=== PATIENT | female | born 1990 | race Asian ===

== ENCOUNTER 2017-03-15 19:18 | Emergency (ER) | payer OTHER ==
[~2017-03-15] VITALS: Ht 157.5 cm; Wt 56.0 kg
[2017-03-15 19:25] VITALS: Ht 157.5 cm; Wt 56.0 kg
--- NOTE | 2017-03-15 19:59 | EMERGENCY ROOM VISIT NOTE ---
History Report prepared by Wilber: Gail Izquierdo Under the Supervision of: Dr. Cornelio Simmons M.D. First contact with patient: 19:44 Chief Complaint: DIZZY Stated Complaint: LIGHTHEADED, FEELS LIKE SHE'S GOING TO PASS OUT Nursing Triage Summary: Pt reports syncopal episode around 191. "I made a statement to my boyfriend and then I couldn't remember saying it. It felt like when I used to smoke pot. I felt my hands tingle and weak. My family has a hx of Diabetes". no injury, easd to floor, drank a soda and felt a little better, but then had another syncopal episode. pt reports weakness, "not myself", abd pain. 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 She states that it feels like she is going to pass out. Her hands and feet are intermittently numb. She does not feel like she is hyperventilating at all. She also reports lower back pain, nausea, and generalized shaking. The patient rates her current pain as a 2 /10 in severity. She states that before her symptoms started today she was feeling fine. She just felt more tired than usual but attributed this to being hungover from drinking alcohol. She reports that she was drinking heavily 2 nights ago and was hungover yesterday. The patient denies urinary symptoms. She notes that about a week ago she had a stomach illness and has been having diarrhea since that time. 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 She is having regular periods and is not on any kind of control. Source of History: patient Onset: 1 hour EDUCATION PROGRAM MANAGER Position: other (global) Symptom Intensity: 2/10 Quality: other (dizziness) Timing: constant Associated Symptoms: + back pain, + diarrhea, + nausea, + numbness, No urinary symptoms Note: Pt notes generalized shaking. Review of Systems All systems have been listed, reviewed, and are negative other than those previously mentioned. Please see Additional Medical History Sheet. Past Medical & Surgical Medical Problems: (1) Bronchitis (2) No significant active problems (3) Pneumonia Surgical Problems: (1) H/O wisdom tooth extraction Family History Cancer Diabetes mellitus Heart disease Hypertension Seizures Social History Smoking Status: Current Every Day Smoker Alcohol Use: occasionally Marital Status: in relationship Housing Status: lives with significant other Occupation Status: employed Current/Historical Medications Scheduled Fexofenadine-Pseudoephedrine (Lydia-D 24 Hour Allergy), 1 TAB PO QPM Scheduled PRN Ibuprofen (Motrin), 400 MG PO Q6H PRN for Pain Allergies Coded Allergies: No Known Allergies (Unverified , 03/15/17) Physical Exam Vital Signs Date Time Temp Pulse Resp B/P Pulse Ox O2 Delivery O2 Flow Rate FiO2 03/15/17 22:25 36.7 84 18 128/99 97 03/15/17 22:01 84 18 128/99 97 Room Air 03/15/17 20:46 94 03/15/17 20:14 99 18 133/105 97 Room Air 03/15/17 19:25 36.7 103 18 141/90 97 Room Air Physical Exam GENERAL: Patient awake, alert, oriented x 3. Patient follows commands. Patient does not appear toxic. Patient is adequately hydrated and well- nourished. SKIN: No erythema, pallor, cyanosis or rash HEENT: Normal head, pupils equal, reactive to light and accommodation. Increased cerumen right ear, left ear normal. Oral cavity and posterior pharynx appear normal. Neck: Without adenopathy, no neck vein distention. LUNGS: Clear to auscultation. No wheezes, no rales, no rhonchi. HEART: No murmurs. No gallops. No rubs ABDOMEN: No masses, no rebound, no hepatomegaly or splenomegaly. EXTREMITIES: No signs of trauma. No pedal or pretibial edema. No calf or thigh tenderness. NEUROLOGIC: Cranial nerves II-XII within normal limits. No gross motor sensory function deficits. Medical Decision & Procedures Laboratory Results 03/15/17 19:45 03/15/17 19:45 Test 03/15/17 19:45 03/15/17 19:47 Red Blood Count 5.01 M/uL (4.2-5.4) Mean Corpuscular Volume 91.4 fL (80-100) Mean Corpuscular Hemoglobin 30.1 pg (25-34) Mean Corpuscular Hemoglobin Concent 33.0 g/dl (32-36) RDW Standard Deviation 42.3 fL (36.4-46.3) RDW Coefficient of Variation 12.7 % (11.5-14.5) Mean Platelet Volume 12.1 fL (7.4-10.4) Urine Color YELLOW Urine Appearance CLEAR (CLEAR) Urine pH 6.5 (4.5-7.5) Urine Specific [place] 1.007 (1.000-1.030) Urine Protein NEG (NEG) Urine Glucose (UA) NEG (NEG) Urine Ketones NEG (NEG) Urine Occult Blood NEG (NEG) Urine Nitrite NEG (NEG) Urine Bilirubin NEG (NEG) Urine Urobilinogen NEG (NEG) Urine Leukocyte Esterase NEG (NEG) Urine Test NEG (NEG) Anion Gap 10.0 mmol/L (3-11) Est Creatinine Clear Calc Drug Dose 91.6 ml/min Estimated GFR () 130.8 Estimated GFR (Non- 112.9 BUN/Creatinine Ratio 7.5 (10-20) Calcium Level 9.1 mg/dl (8.5-10.1) Troponin I < 0.015 ng/ml (0-0.045) Chemistry Specimen Hemolysis Bedside Glucose 91 mg/dl (70-90) Laboratory results as stated above per my review. Medications Administered Medications (Trade) Dose Ordered Sig/Storm Route Start Time Stop Time Status Last Admin Dose Admin Sodium Chloride (Nss 1000ml) 1,000 ml @ 1,000 mls/hr Q1H ONCE IV 03/15/17 20:30 03/15/17 21:29 DC 03/15/17 20:25 1,000 MLS/HR ECG Indication: other Rate (beats per minute): 73 Rhythm: normal sinus Findings: no acute ischemic change, no ectopy ED Course 1943: Past medical records reviewed. The patient was evaluated in room B7. A complete history and physical examination was performed. 2030: NSS 1000 ml @ 1000 mls/hr IV 215: I reassessed the patient at this time. She is feeling better and resting comfortably. I discussed the results and treatment plan with the patient. I answered all pertaining questions that she had. She expressed understanding and verbalized agreement. The patient will be discharged home. Medical Decision Differential diagnoses includes hyperventilation, anxiety, viral infection, metabolic disorder, dehydration. Medication Reconciliation: I attest that I have personally reviewed the patient' s current medication list. Blood pressure Screening: Patient was found to have normal blood pressure on screening and does not require follow up. The patient was drinking alcohol heavily approximately 36 hours ago. She felt like she had a hangover yesterday. Today she has some numbness to her fingers and intermittent abdominal pain. Multiple labs and urinalysis were evaluated. Please see above. The potassium specimen hemolyzed and was not repeated but I am not concerned about abnormalities of her potassium. A electrolytes and CBC were felt to be within normal range. The patient was given IV fluids and felt significantly better. I reassured her. The patient does not require any additional medications at this time. Impression Primary Impression: Dehydration Additional Impression: Hyperventilation Scribe Attestation The scribe's documentation has been prepared under my direction and personally reviewed by me in its entirety. I confirm that the note above accurately reflects all work, treatment, procedures, and medical decision making performed by me. Departure Information Dispostion Home / Self-Care Referrals No Doctor, Assigned (PCP) Forms HOME CARE DOCUMENTATION FORM, IMPORTANT VISIT INFORMATION Patient Instructions My [facility] Additional Instructions Drink at least 3-4 quarts of liquid over the next 24 hours. Problem Qualifiers
[2017-03-15 20:03] LABS: HEMATOCRIT 45.8 % (37-47); MEAN CELL VOLUME 91.4 fL (80-100); MEAN CORPUSCULAR HEMOGLOBIN 30.1 pg (25-34); MEAN PLATELET VOLUME 12.1 fL (7.4-10.4); PLATELET COUNT 367 K/uL (130-400); RED BLOOD COUNT 5.01 M/uL (4.2-5.4); WHITE BLOOD COUNT 10.25 K/uL (4.8-10.8)
[2017-03-15 20:08] LABS: MANUAL MICROSCOPIC REQUIRED? NO; REVIEW REQ? NO; URINE APPEARANCE CLEAR (CLEAR); URINE BILIRUBIN NEG (NEG); URINE COLOR YELLOW; URINE NITRITE NEG (NEG); URINE PH 6.5 (4.5-7.5); URINE SPECIFIC GRAVITY 1.007 (1.000-1.030); UROBILINOGEN NEG (NEG); ZZUR CULT IF INDIC CLEAN CATCH NO
[2017-03-15] MEDS ORDERED: FEXO1TAB58 PO (20:19)
[2017-03-15] MEDS ORDERED: IBUP-1459 PO (20:19)
[2017-03-15 20:27] LABS: CALCIUM 9.1 mg/dl (8.5-10.1); CHLORIDE 104 mmol/L (98-107); CREATININE 0.73 mg/dl (0.60-1.20); GLUCOSE 99 mg/dl (70-99)
[2017-03-15 20:28] LABS: BLOOD UREA NITROGEN 6 mg/dl (7-18); BUN/CREATININE RATIO 7.5 (10-20); CARBON DIOXIDE 26 mmol/L (21-32); SODIUM 140 mmol/L (136-145)
[2017-03-15] MEDS ORDERED: SODIUM CHLORIDE 0.9% 1000ML 1,000 ML IV ONE (20:30)
[2017-03-15 22:25] VITALS: BP 128/99; PULSE 84; TEMP 36.7; O2SAT 97
== END 2017-03-15 22:30 | disposition home or self-care (01) ==
LOC: C.EDB 19:20
DX: E86.0 Dehydration (principal); R06.4 Hyperventilation; Z87.01 Personal history of pneumonia (recurrent); Z80.9 Family history of malignant neoplasm, unspecified; Z83.3 Family history of diabetes mellitus; Z82.49 Family history of ischemic heart disease and other diseases of the circulatory system; Z82.0 Family history of epilepsy and other diseases of the nervous system; F17.210 Nicotine dependence, cigarettes, uncomplicated

== ENCOUNTER → 2017-04-21 | Outpatient (CLI) | payer BC ==
[~2017-04-21] MED LIST: FEXO1TAB58 PO; IBUP-1459 PO
[2017-04-21 07:48] LABS: BASO % 0.8 %; BASO ABS # 0.06 K/uL (0-0.2); COMPLETE YES; EOS % 2.1 %; HEMATOCRIT 46.4 % (37-47); IG% 0.3 %; LYMPH % 26.8 %; MEAN CORPUSCULAR HEMOGLOBIN 29.4 pg (25-34); MEAN CORPUSCULAR HGB CONC 32.3 g/dl (32-36); MEAN PLATELET VOLUME 12.1 fL (7.4-10.4); MONO % 6.8 %; NEUT % 63.2 %; PLATELET COUNT 340 K/uL (130-400); WHITE BLOOD COUNT 7.08 K/uL (4.8-10.8)
[2017-04-21 08:14] LABS: ALT/SGPT 33 U/L (12-78); BLOOD UREA NITROGEN 6 mg/dl (7-18); BUN/CREATININE RATIO 11.2 (10-20); CALCIUM 9.1 mg/dl (8.5-10.1); CARBON DIOXIDE 28 mmol/L (21-32); CHLORIDE 105 mmol/L (98-107); CHOLESTEROL 179 mg/dl (0-200); CREATININE 0.56 mg/dl (0.60-1.20); GLUCOSE 89 mg/dl (70-99); POTASSIUM 3.7 mmol/L (3.5-5.1); SODIUM 138 mmol/L (136-145)
[2017-04-21 08:25] LABS: ALB/GLOB RATIO 1.3 (0.9-2); ALKALINE PHOSPHATASE 64 U/L (45-117); AST/SGOT 19 U/L (15-37); CHOLESTEROL/HDL RATIO 3.4; HDL CHOLESTEROL 53 mg/dl; LDL CHOLESTEROL CALCULATED 97 mg/dl; TRIGLYCERIDES 145 mg/dl (0-150); VERY LOW DENSITY LIPOPROT CALC 29 mg/dl
[2017-04-21 08:57] LABS: ESTIMATED AVERAGE GLUCOSE 111 mg/dl; HA1C FLAG Normal (Normal)
[2017-04-21 14:58] LABS: LYME DISEASE AB IGG NEG (NEG)
[2017-04-21 15:01] LABS: LYME DISEASE AB IGM NEG (NEG)
[2017-04-29 15:43] LABS: NORMETANEPHRINE PLASMA 92 pg/mL (<=148); TOTAL METANEPHRINE PLASMA 92 pg/mL (<=205)
[2017-04-29 16:56] LABS: ANA TITER > OR = 1:1280 TITER (<1:40)
== END | disposition home or self-care (01) ==
LOC: C.LAB1850 07:11
PROVIDERS: ATTEND Internal Medicine
DX: Z00.00 Encounter for general adult medical examination without abnormal findings (principal); R42 Dizziness and giddiness; R53.83 Other fatigue; R23.2 Flushing; R51 Headache; W57.XXXA Bitten or stung by nonvenomous insect and other nonvenomous arthropods, initial encounter; T14.8 Other injury of unspecified body region

== ENCOUNTER → 2017-05-04 | Outpatient (CLI) | payer BC ==
[2017-05-09 07:16] LABS: ANTI-CENTROMERE AB <1.0 NEG AI (<1.0 NEG); ANTI-SS-A <1.0 NEG AI (<1.0 NEG); ANTI-SS-B <1.0 NEG AI (<1.0 NEG); DNA ds CRITHIDIA NEGATIVE (NEGATIVE); MICROSOMAL AB <1 IU/ML (<9); Sm Antibody <1.0 NEG AI (<1.0 NEG)
[2017-05-10 08:08] LABS: ANA TITER > OR = 1:1280 TITER (<1:40)
== END | disposition home or self-care (01) ==
LOC: C.LAB1850 16:01
PROVIDERS: ATTEND Internal Medicine
DX: R42 Dizziness and giddiness (principal); R51 Headache; R53.83 Other fatigue; R23.2 Flushing